=== PATIENT | male | born 1990 | race Caucasian/White ===

== ENCOUNTER → 2022-04-13 | Emergency (ER) | payer SELFPAY ==
[~2022-04-13] VITALS: Ht 160 cm; Wt 54.4 kg
[2022-04-13 02:04] VITALS: BP_SYST 129
== END | disposition left against medical advice (07) ==
LOC: SED 02:00
DX: S99.922A Unspecified injury of left foot, initial encounter (principal); X58.XXXA Exposure to other specified factors, initial encounter; Y93.89 Activity, other specified; Y92.89 Other specified places as the place of occurrence of the external cause; Y99.8 Other external cause status; Z53.21 Procedure and treatment not carried out due to patient leaving prior to being seen by health care provider